=== PATIENT | female | born 1950 | race African-American/Black ===

== ENCOUNTER 2019-01-17 14:56 | Emergency (ER) | payer OTHER ==
[2019-01-17 16:11] VITALS: BP 114/70; PULSE 73; TEMP 98.5; BMI 32.8
[2019-01-17] MEDS ORDERED: BACITRACIN 15 GM TUBE TOPICAL OINTMENT TP ONE (16:19)
[2019-01-17] MEDS ORDERED: DIPHTH,PERTUSS(ACELL),TET 0.5 ML DISP.SYRIN IM ONE ×2 (16:19→16:21)
--- NOTE | 2019-01-17 16:23 | PDOC ---
Documentation entered by Lina Hyde SCRIBE, acting as scribe for Ilene Saunders MD. Ilene Saunders MD: This documentation has been prepared by the scribeBarrett Lincy, SCRIBE, under my direction and personally reviewed by me in its entirety. I confirm that the documentation accurately reflects all work, treatment, procedures, and medical decision making performed by me. History of Present Illness - General Chief Complaint: Back Pain Stated Complaint: BACK PAIN History Source: Patient Exam Limitations: No Limitations - History of Present Illness Initial Comments: 01/17/19 16:26 The patient is a 68-year-old female with a past medical history significant for DM and narcolepsy who presents to the emergency department with a boil to the right flank region. The patient reports on she felt a bite like sensation to the right flank region. The patient reports the same night she went to sleep on a heating pad. The patient states she woke up Saturday with bubble to the flank region. The patient reports following up with PCP (Dr. Koo), who referred the patient to the ER for further management. Denies fever or chills. Denies bloody or purulent drainage. Past History - Past Medical History Allergies/Adverse Reactions: Allergies Allergy/AdvReac Type Severity Reaction Status Date / Time No Known Allergies Allergy Verified 01/17/19 15:50 Home Medications: Ambulatory Orders Allopurinol 300 mg PO SUMOTU 01/17/19 Bacitracin - [Bacitracin Topical Ointment -] 1 applic TP DAILY #1 applic Metformin HCl [Glucophage] 1,000 mg PO DAILY 01/17/19 Metoprolol Succinate [Toprol Xl] 100 mg PO DAILY 01/17/19 Multivit-Minerals/Folic Acid [One Daily Womens 50 Plus Tab] 0.4 mg PO DAILY 11/28 Nifedipine [Nifedipine ER] 90 mg PO DAILY 01/17/19 Review of Systems - Review of Systems Able to Perform ROS?: Yes Comments:: 01/17/19 16:26 GENERAL/CONSTITUTIONAL: No fever or chills. No weakness. HEAD, EYES, EARS, NOSE AND THROAT: No change in vision. No ear pain or discharge. No sore throat. CARDIOVASCULAR: No chest pain or shortness of breath. RESPIRATORY: No cough, wheezing, or hemoptysis. GASTROINTESTINAL: No nausea, vomiting, diarrhea or constipation. GENITOURINARY: No dysuria, frequency, or change in urination. MUSCULOSKELETAL: No joint or muscle swelling or pain. No neck or back pain. SKIN: +blister to the right flank region. No rash NEUROLOGIC: No headache, vertigo, loss of consciousness, or change in strength/ sensation. ENDOCRINE: No increased thirst. No abnormal weight change. HEMATOLOGIC/LYMPHATIC: No anemia, easy bleeding, or history of blood clots. ALLERGIC/IMMUNOLOGIC: No hives or skin allergy. *Physical Exam - Vital Signs Last Vital Signs Temp Pulse Resp BP Pulse Ox 98.5 F 73 16 114/70 100 01/17/19 14:58 01/17/19 14:58 01/17/19 14:58 01/17/19 14:58 01/17/19 14:58 - Physical Exam Comments: 01/17/19 16:32 General: Alert, oriented, in no acute distress Skin: Single 1cm blister to her right flank region, with very small area of surrounding erythema. Medical Decision Making - Medical Decision Making 01/17/19 16:36 Pt presents to the ED complaining of single blister to the torso after using a heating pad. Tetanus given. most likely secondary to thermal burn. Will treat with bacitracin and discharge home. Will instruct to return to the ED for worsening symptoms and for wound check. *DC/Admit/Observation/Transfer Diagnosis at time of Disposition: Blister - Discharge Dispostion Disposition: HOME Condition at time of disposition: Good Decision to Admit order: No - Prescriptions Prescriptions: Bacitracin - [Bacitracin Topical Ointment -] 1 applic TP DAILY #1 applic - Referrals Referrals: Isrrael Mena [Primary Care Provider] - - Patient Instructions Printed Discharge Instructions: DI for Blisters Additional Instructions: you came to the ED for a blister on your torso. This was most likely caused by a burn from your heating pad. You should use the ointment I prescribed and change the dressing every day. Return to the ED for spreading blisters, fever, nausea and vomiting, redness and tenderness around the blister that is spreading. return to the ED in one week for a wound check. - Post Discharge Activity
== END 2019-01-17 16:37 | disposition home or self-care (01) ==
LOC: FER 14:56
PROC: 3E0234Z Introduction of Serum, Toxoid and Vaccine into Muscle, Percutaneous Approach (ICD-10-PCS; principal; 2019-01-17)
DX: T21.22XA Burn of second degree of abdominal wall, initial encounter (principal); X08.8XXA Exposure to other specified smoke, fire and flames, initial encounter; Y93.89 Activity, other specified; Y92.89 Other specified places as the place of occurrence of the external cause
CPT/HCPCS: 90715; 99282-25